=== PATIENT | male | born 1965 | race Caucasian/White ===

== ENCOUNTER 2020-08-03 06:15 | Day surgery (SDC) | payer BC ==
[~2020-08-03] VITALS: Ht 185.4 cm; Wt 100.7 kg
[~2020-08-03 06:15] MED LIST: ASPI325 PO; CELE200 PO; ETAN50I IM; INVOKANA300 MG PO; JARDIANCE25 MG PO; KETO10 PO; LIVALO4 MG PO; LOSHYD PO; LOVA20; METF500 PO; OLME20; OSTEO BI-FLEX1 EAC4 PO; OXYACE5T PO; PROM25 PO; ROSU5 PO; TAMS.4ER PO
[2020-08-03] MEDS ORDERED: TRULICITY1.5 MG/0.1 (06:57)
== END 2020-08-03 10:13 | disposition home or self-care (01) ==
LOC: ORSCSDS 06:15
DX: M77.41 Metatarsalgia, right foot (principal); M21.961 Unspecified acquired deformity of right lower leg; M20.41 Other hammer toe(s) (acquired), right foot; M79.671 Pain in right foot; I10 Essential (primary) hypertension; E11.9 Type 2 diabetes mellitus without complications; E78.5 Hyperlipidemia, unspecified; Z79.84 Long term (current) use of oral hypoglycemic drugs; Z79.899 Other long term (current) drug therapy
CPT/HCPCS: 82947; C1713; J0171; J0690; J1100; J2250; J2405; J2704; J3010; J7120

== ENCOUNTER → 2021-04-10 | Outpatient (CLI) | payer BC ==
[~2021-04-10] MED LIST changes: +TRULICITY1.5 MG/0.1
== END ==
LOC: LAB 15:53 → LAB SHORT 15:53
DX: D48.5 Neoplasm of uncertain behavior of skin (principal)
CPT/HCPCS: 88305

== ENCOUNTER → 2023-06-24 | Outpatient (CLI) | payer BC ==
[~2023-06-24] MED LIST changes: +LYRICA100 M1
== END | disposition home or self-care (01) ==
LOC: LAB SHORT 14:03 → LAB 14:03
DX: D75.1 Secondary polycythemia (principal); G62.9 Polyneuropathy, unspecified
CPT/HCPCS: 82607; 82668

== ENCOUNTER 2023-07-23 09:08 | Emergency (ER) | payer BC ==
[~2023-07-23] VITALS: Ht 185.4 cm; Wt 94.3 kg
[2023-07-23 10:07] LABS: BASOPHILS ABSOLUTE AUTO 0.04 K/mm3 (0.00-0.23); BASOPHILS PERCENT AUTO 1 % (0-2); EOSINOPHILS ABSOLUTE AUTO 0.15 K/mm3 (0.00-0.68); EOSINOPHILS PERCENT AUTO 2 % (0-6); Hemoglobin 16.3 g/dL (13.5-17.5); IMMATURE GRAN ABSOLUTE AUTO 0.03 K/mm3 (0.00-0.10); IMMATURE GRAN PERCENT AUTO 1 % (0-1); LYMPHOCYTES ABSOLUTE AUTO 1.13 K/mm3 (0.84-5.20); LYMPHOCYTES PERCENT AUTO 18 % (21-46); MONOCYTES PERCENT AUTO 8 % (4-13); Mean Corpuscular HGB 29.1 pg (26.0-34.0); Mean Corpuscular Volume 86 fL (80-100); Mean Platelet Volume 9.8 fL (9.1-12.4); NEUTROPHILS PERCENT AUTO 71 % (41-73); Platelet Count 198 K/mm3 (150-400); RDW Coefficient Variation 13.1 % (11.7-14.2); RDW Standard Deviation 40.6 fL (35.1-46.3); White Blood Cell Count 6.45 K/mm3 (4.00-11.30)
[2023-07-23] MEDS ORDERED: TAMS.4ER PO (10:21)
[2023-07-23] MEDS ORDERED: KETO10 PO (10:22)
[2023-07-23] MEDS ORDERED: METO10 PO (10:23)
[2023-07-23 10:26] LABS: Albumin, Blood 4.1 g/dL (3.4-5.0); Albumin/Globulin Ratio 1.4 (0.8-1.8); Bilirubin, Total 0.5 mg/dL (0.1-1.0); Bun/Creatinine Ratio 24.4 (12.0-20.0); Calcium, Blood 9.7 mg/dL (8.5-10.1); Creatinine, Blood 0.82 mg/dL (0.60-1.20); Globulin, Blood 2.9 g/dL (2.2-4.0); Potassium, Blood 4.2 mmol/L (3.5-5.5)
[2023-07-23 10:40] LABS: Source, Urine Clean Catch
[2023-07-23 10:43] LABS: Appearance, Urine Clear (Clear); Bilirubin, Urine Neg (Neg); Blood, Urine 4+ (Neg); Color, Urine Yellow (P-Yellow); Glucose Qualitative, Urine 4+ (Neg); Ketones, Urine Neg (Neg); Leukocyte Esterase, Urine Neg (Neg); Nitrite, Urine Neg (Neg); Protein, Urine Neg (Neg); Urobilinogen, Urine NORM (Normal)
[2023-07-23 10:51] LABS: Bacteria Not Seen /hpf; Red Blood Cells, Urine 25-50 /hpf (0-2); Squamous Epithelial Cells Not Seen /hpf (Few); White Blood Cells, Urine Not Seen /hpf (0-5)
[2023-07-23 11:00] VITALS: BP 122/72
== END 2023-07-23 11:11 | disposition home or self-care (01) ==
LOC: ER 09:08
PROVIDERS: Physician Assistant
DX: N13.2 Hydronephrosis with renal and ureteral calculous obstruction (principal); Z79.899 Other long term (current) drug therapy; Z79.84 Long term (current) use of oral hypoglycemic drugs; I10 Essential (primary) hypertension; E11.9 Type 2 diabetes mellitus without complications
CPT/HCPCS: 74176; 80053; 81001; 83690; 85025; 96361; 96374; 96375; 99284-25; A9270; J1885; J2405; J7030